=== PATIENT | male | born 1950 | race Caucasian/White ===

== ENCOUNTER 2018-10-02 12:13 | Inpatient (IN) | payer MEDICARE ==
[2018-10-02 13:03] LABS: ADD MAN DIFF? NO
[2018-10-02 13:10] LABS: BASOPHILS % 0.4 % (0.0-2.0); EOSINOPHILS # 0.2 10^3/ul (0.0-0.5); EOSINOPHILS % 2.3 % (0.0-7.0); HEMATOCRIT 39.8 % (42.0-52.0); HEMOGLOBIN 13.8 g/dl (14.0-18.0); LYMPHOCYTES # 1.9 10^3/ul (0.8-2.9); LYMPHOCYTES % 22.2 % (15.0-51.0); MEAN CORPUSCULAR HEMOGLOBIN 29.9 pg (29.0-33.0); MEAN CORPUSCULAR HGB CONC 34.7 g/dl (32.0-37.0); MEAN CORPUSCULAR VOLUME 86.1 fl (82.0-101.0); MEAN PLATELET VOLUME 10.7 fl (7.4-10.4); MONOCYTE # 0.6 10^3/ul (0.3-0.9); MONOCYTES % 7.1 % (0.0-11.0); NEUTROPHIL # 5.7 10^3/ul (1.6-7.5); NEUTROPHILS % 67.5 % (39.0-77.0); PLATELET COUNT 184 10^3/UL (140-415); RED BLOOD COUNT 4.62 10^6/ul (4.70-6.10); RED CELL DISTRIBUTION WIDTH 12.3 % (11.5-14.5)
[2018-10-02 13:10] LABS: WHITE BLOOD COUNT 8.4 10^3/ul (4.8-10.8)
[2018-10-02 13:28] LABS: ALANINE AMINOTRANSFERASE 30 IU/L (13-69); ALBUMIN 3.9 g/dl (3.3-4.9); ALBUMIN/GLOBULIN RATIO 1.21; ALKALINE PHOSPHATASE 99 IU/L (42-121); ANION GAP 12 (5-13); ASPARTATE AMINO TRANSFERASE 23 IU/L (15-46); BILIRUBIN,INDIRECT 0.5 mg/dl (0-1.1); BILIRUBIN,TOTAL 0.5 mg/dl (0.2-1.3); BLOOD UREA NITROGEN 17 mg/dl (7-20); CALCIUM 9.4 mg/dl (8.4-10.2); CARBON DIOXIDE 22 mmol/L (21-31); CHLORIDE 105 mmol/L (97-110); CREATININE 0.98 mg/dl (0.61-1.24); Estimated GFR > 60 mL/min (>60); GLUCOSE 278 mg/dl (70-220); LIPASE 158 U/L (23-300); POTASSIUM 4.6 mmol/L (3.5-5.1); SODIUM 139 mmol/L (135-144); TOTAL PROTEIN 7.1 g/dl (6.1-8.1)
[2018-10-02 13:40] LABS: B-TYPE NATRIURETIC PEPTIDE 386 PG/ML (0-125)
[2018-10-02 13:58] LABS: TROPONIN-I 0.126 ng/ml (0.000-0.120)
[2018-10-02] MEDS: ASPIRIN 81 MG TAB PO (14:10)
[2018-10-02] MEDS: NICARDipine HCL 30 MG CAPSULE PO (14:10)
[2018-10-02] MEDS: IOHEXOL 100 ML (15:22)
[2018-10-02] MEDS: SOD CHLORIDE 0.9% 100 ML (15:22)
[2018-10-02] MEDS ORDERED: NACL 0.9% 3 ML SYG IV (15:30)
[2018-10-02] MEDS ORDERED: HYDROCODONE/APAP (5/325) TAB PO (15:30)
[2018-10-02] MEDS ORDERED: ACETAMINOPHEN 325 MG TAB PO (15:30)
[2018-10-02] MEDS ORDERED: AMLODIPINE 5 MG TAB PO (15:30)
[2018-10-02] MEDS ORDERED: ONDANSETRON 4 MG INJ IV (15:30)
[2018-10-02 15:58] LABS: HEMOGLOBIN A1C 8.3 % (0-5.9)
[2018-10-02 16:10] LABS: FREE T4 (FREE THYROXINE) 1.12 ng/dl (0.78-2.44)
[2018-10-02] MEDS ORDERED: GLUCAGON 1 MG INJ IM (16:30)
[2018-10-02] MEDS ORDERED: DEXTROSE 50% 50 ML SYRINGE IV ×2 (16:30)
[2018-10-02] MEDS ORDERED: GLUCOSE GEL 15 GRAM TUBE PO ×2 (16:30)
[2018-10-02] MEDS ORDERED: GLUCOSE GEL 15 GRAM TUBE BUCCAL (16:30)
[2018-10-02] MEDS: INSULIN ASPART [NOVOLOG] 3 ML PEN SC ×3 (17:59→20:47)
[2018-10-02] MEDS: MIRTAZAPINE 15 MG TAB PO (20:35)
[2018-10-02] MEDS: LOSARTAN 50 MG TAB PO (20:36)
[2018-10-02 20:45] LABS: CREATINE KINASE 126 IU/L (23-200)
[2018-10-02] MEDS: INSULIN GLARGINE [LANTus] (100 UNITS/ML) SYG SC (20:47)
[2018-10-02 20:58] LABS: CK INDEX 1.7; CK-MB 2.09 ng/ml (0.0-2.4)
[2018-10-02] MEDS ORDERED: METOPROLOL 100 MG TAB PO (21:00)
[2018-10-02 21:02] LABS: TROPONIN-I 0.164 ng/ml (0.000-0.120)
[2018-10-02] MEDS: ZOLPIDEM 5 MG TAB PO (23:19)
[2018-10-03 05:26] LABS: ADD MAN DIFF? NO
[2018-10-03 05:31] LABS: BASOPHILS % 0.4 % (0.0-2.0); EOSINOPHILS # 0.2 10^3/ul (0.0-0.5); EOSINOPHILS % 2.6 % (0.0-7.0); HEMATOCRIT 38.9 % (42.0-52.0); HEMOGLOBIN 13.4 g/dl (14.0-18.0); LYMPHOCYTES # 2.7 10^3/ul (0.8-2.9); LYMPHOCYTES % 29.3 % (15.0-51.0); MEAN CORPUSCULAR HGB CONC 34.4 g/dl (32.0-37.0); MEAN CORPUSCULAR VOLUME 87.2 fl (82.0-101.0); MEAN PLATELET VOLUME 10.7 fl (7.4-10.4); MONOCYTE # 0.8 10^3/ul (0.3-0.9); MONOCYTES % 8.4 % (0.0-11.0); NEUTROPHIL # 5.5 10^3/ul (1.6-7.5); PLATELET COUNT 179 10^3/UL (140-415); RED BLOOD COUNT 4.46 10^6/ul (4.70-6.10); RED CELL DISTRIBUTION WIDTH 12.6 % (11.5-14.5)
[2018-10-03 05:31] LABS: WHITE BLOOD COUNT 9.3 10^3/ul (4.8-10.8)
[2018-10-03 06:00] LABS: ALANINE AMINOTRANSFERASE 26 IU/L (13-69); ALBUMIN 3.7 g/dl (3.3-4.9); ALBUMIN/GLOBULIN RATIO 1.68; ALKALINE PHOSPHATASE 77 IU/L (42-121); ANION GAP 12 (5-13); ASPARTATE AMINO TRANSFERASE 21 IU/L (15-46); BILIRUBIN,INDIRECT 0.6 mg/dl (0-1.1); BILIRUBIN,TOTAL 0.6 mg/dl (0.2-1.3); BLOOD UREA NITROGEN 19 mg/dl (7-20); CALCIUM 9.6 mg/dl (8.4-10.2); CARBON DIOXIDE 23 mmol/L (21-31); CHLORIDE 105 mmol/L (97-110); CREATININE 1.11 mg/dl (0.61-1.24); Estimated GFR > 60 mL/min (>60); GLUCOSE 210 mg/dl (70-220); POTASSIUM 4.4 mmol/L (3.5-5.1); SODIUM 140 mmol/L (135-144); TOTAL PROTEIN 5.9 g/dl (6.1-8.1)
[2018-10-03 06:13] LABS: PHOSPHORUS 3.7 mg/dl (2.5-4.9)
[2018-10-03 06:13] LABS: CHOL/HDL RATIO 8.3 RATIO; CHOLESTEROL 183 mg/dl (100-200); HDL CHOLESTEROL 22 mg/dl (31-75); LDL CHOLESTEROL,CALCULATED 120 mg/dl; MAGNESIUM 1.8 mg/dl (1.7-2.5); TRIGLYCERIDES 207 mg/dl (0-149)
[2018-10-03] MEDS: INSULIN ASPART [NOVOLOG] 3 ML PEN SC ×4 (08:05→12:09)
[2018-10-03] MEDS: LOSARTAN 50 MG TAB PO (08:23)
[2018-10-03] MEDS: ASPIRIN 81 MG TAB PO (08:23)
[2018-10-03] MEDS: ENOXAPARIN 40 MG/0.4 ML SYG SC (08:27)
[2018-10-03] MEDS ORDERED: LOSARTAN 50 MG TAB PO (09:00)
[2018-10-03] MEDS: REGADENOSON 0.4 MG/5 ML SYG (10:22)
[2018-10-03 11:59] LABS: CREATINE KINASE 120 IU/L (23-200)
[2018-10-03 12:13] LABS: CK INDEX 1.4; CK-MB 1.64 ng/ml (0.0-2.4)
[2018-10-03 12:54] LABS: TROPONIN-I 0.148 ng/ml (0.000-0.120)
[2018-10-03] MEDS: NA PHOSPHATE/BIPHOS 133 ML ENEMA PR (16:02)
[2018-10-03] MEDS ORDERED: ATORVASTATIN 20 MG TAB PO (21:00)
== END 2018-10-03 18:37 | disposition home or self-care (01) | DRG 281 ==
LOC: E/R 12:13 → 6WM 14:35
PROVIDERS: Internal Medicine
PROC: C22G1ZZ Tomographic (Tomo) Nuclear Medicine Imaging of Myocardium using Technetium 99m (Tc-99m) (ICD-10-PCS; principal; 2018-10-03)
DX: I21.A1 Myocardial infarction type 2 (principal); I16.1 Hypertensive emergency; I16.0 Hypertensive urgency; E11.9 Type 2 diabetes mellitus without complications; G47.00 Insomnia, unspecified; E66.9 Obesity, unspecified; Z68.38 Body mass index [BMI] 38.0-38.9, adult; I10 Essential (primary) hypertension; E78.5 Hyperlipidemia, unspecified; F99 Mental disorder, not otherwise specified
CPT/HCPCS: 36415; 71045; 71275; 78452; 80053; 80061; 82550; 82553; 82962; 83036; 83690; 83735; 83880; 84100; 84439; 84443; 84484; 85025; 93005; 93017; 93306; 99285-25

== ENCOUNTER 2018-11-21 12:57 | Inpatient (IN) | payer MEDICARE ==
[2018-11-21 13:27] LABS: ADD MAN DIFF? NO
[2018-11-21 13:29] LABS: BASOPHILS % 0.3 % (0.0-2.0); EOSINOPHILS # 0.2 10^3/ul (0.0-0.5); EOSINOPHILS % 2.2 % (0.0-7.0); HEMATOCRIT 45.8 % (42.0-52.0); HEMOGLOBIN 15.6 g/dl (14.0-18.0); LYMPHOCYTES # 2.2 10^3/ul (0.8-2.9); LYMPHOCYTES % 21.3 % (15.0-51.0); MEAN CORPUSCULAR HEMOGLOBIN 29.3 pg (29.0-33.0); MEAN CORPUSCULAR HGB CONC 34.1 g/dl (32.0-37.0); MEAN CORPUSCULAR VOLUME 85.9 fl (82.0-101.0); MEAN PLATELET VOLUME 11.1 fl (7.4-10.4); MONOCYTE # 0.8 10^3/ul (0.3-0.9); MONOCYTES % 7.7 % (0.0-11.0); NEUTROPHIL # 6.9 10^3/ul (1.6-7.5); NEUTROPHILS % 67.9 % (39.0-77.0); PLATELET COUNT 286 10^3/UL (140-415); RED BLOOD COUNT 5.33 10^6/ul (4.70-6.10); RED CELL DISTRIBUTION WIDTH 12.7 % (11.5-14.5)
[2018-11-21 13:29] LABS: WHITE BLOOD COUNT 10.1 10^3/ul (4.8-10.8)
[2018-11-21] MEDS: LORAZEPAM 2 MG INJ IV (13:44)
[2018-11-21] MEDS: SOD CHLORIDE 0.9% 1,000 ML IV ×3 (13:45→17:39)
[2018-11-21 13:47] LABS: ALANINE AMINOTRANSFERASE 29 IU/L (13-69); ALBUMIN 4.5 g/dl (3.3-4.9); ALBUMIN/GLOBULIN RATIO 1.32; ALKALINE PHOSPHATASE 119 IU/L (42-121); ANION GAP 18 (5-13); ASPARTATE AMINO TRANSFERASE 25 IU/L (15-46); BILIRUBIN,INDIRECT 0.6 mg/dl (0-1.1); BILIRUBIN,TOTAL 0.6 mg/dl (0.2-1.3); BLOOD UREA NITROGEN 29 mg/dl (7-20); CALCIUM 9.7 mg/dl (8.4-10.2); CARBON DIOXIDE 19 mmol/L (21-31); CHLORIDE 102 mmol/L (97-110); CREATININE 2.09 mg/dl (0.61-1.24); Estimated GFR 32 mL/min (>60); GLUCOSE 348 mg/dl (70-220); POTASSIUM 4.6 mmol/L (3.5-5.1); SODIUM 139 mmol/L (135-144); TOTAL PROTEIN 7.9 g/dl (6.1-8.1)
[2018-11-21 13:57] LABS: ACETAMINOPHEN < 10.0 ug/ml (10.0-30.0); ETHANOL < 10.0 mg/dl (0-0); SALICYLATE < 1.0 mg/dl (5.0-30.0)
[2018-11-21] MEDS ORDERED: ONDANSETRON 4 MG INJ IV ×2 (14:30→15:30)
[2018-11-21] MEDS ORDERED: ACETAMINOPHEN 325 MG TAB PO (14:30)
[2018-11-21] MEDS: INSULIN LISPRO 100 UNIT/ML VIAL SC (14:49)
[2018-11-21] MEDS ORDERED: POTASSIUM CHLORIDE 40 MEQ in SOD CHLORIDE 0.9% 1,000 ML IV (15:14)
[2018-11-21] MEDS ORDERED: hydrALAzine 20 MG INJ IV (15:30)
[2018-11-21] MEDS ORDERED: morphine SULFATE/PF (2 MG/2 ML) SYG IV (15:30)
[2018-11-21] MEDS ORDERED: DOCUSATE SODIUM 100 MG CAP PO (15:30)
[2018-11-21] MEDS ORDERED: MAGNESIUM HYDROXIDE 30ML CUP PO (15:30)
[2018-11-21] MEDS ORDERED: NITROGLYCERIN (SL) 0.4 MG TAB SL (15:30)
[2018-11-21] MEDS ORDERED: HYDROCODONE/APAP (5/325) TAB PO (15:30)
[2018-11-21] MEDS ORDERED: ALBUTEROL/IPRATROPIUM (NEB) 3 ML AMP HHN (15:30)
[2018-11-21] MEDS ORDERED: NACL 0.9% 3 ML SYG IV (15:30)
[2018-11-21] MEDS: ACCU-CHEK XX ×8 (16:00→23:07)
[2018-11-21 16:22] LABS: FREE T4 (FREE THYROXINE) 1.53 ng/dl (0.78-2.44)
[2018-11-21 16:28] LABS: INR 1.04; PARTIAL THROMBOPLASTIN TIME 28.8 Sec (23.0-35.0); PROTIME 13.7 Sec (11.9-14.9); PT RATIO 1.1
[2018-11-21] MEDS ORDERED: SOD CHLORIDE 0.9% 1,000 ML IV (16:30)
[2018-11-21 16:57] LABS: HEMOGLOBIN A1C 8.5 % (0-5.9)
[2018-11-21 17:25] LABS: MAGNESIUM 1.4 mg/dl (1.7-2.5)
[2018-11-21] MEDS ORDERED: SODIUM CHLORIDE 23.4% 77 MEQ, POTASSIUM CHLORIDE 40 MEQ in DEXTROSE 10% 1,000 ML IV (17:30)
[2018-11-21 17:46] LABS: CREATINE KINASE 116 IU/L (23-200)
[2018-11-21 17:59] LABS: CK-MB 2.34 ng/ml (0.0-2.4); TROPONIN-I 0.079 ng/ml (0.000-0.120)
[2018-11-21] MEDS: POTASSIUM CHLORIDE 30 MEQ in SOD CHLORIDE 0.9% 1,000 ML IV (18:29)
[2018-11-21] MEDS: SODIUM CHLORIDE 23.4% 77 MEQ, POTASSIUM CHLORIDE 30 MEQ in DEXTROSE 10% 1,000 ML IV (18:29)
[2018-11-21] MEDS: INSULIN REGULAR, HUMAN 100 UNIT in SOD CHLORIDE 0.9% 99 ML IV (18:32)
[2018-11-21] MEDS: LACTATED RINGER'S 1,000 ML IV (18:33)
[2018-11-21] MEDS: ASPIRIN 81 MG TAB PO (19:05)
[2018-11-21] MEDS: PANTOPRAZOLE 40 MG INJ IV (19:05)
[2018-11-21] MEDS: HEPARIN 5,000 UNIT/1 ML VIAL SC (19:08)
[2018-11-21 19:53] LABS: MODE ROOM AIR; MetHgb Venous 1.5 %; Sample Type Blood venous; Site VENOUS LINE; Venous COHb 0.3 %; Venous Fraction OxyHgb 27.5 %
[2018-11-21 20:10] LABS: ANION GAP 12 (5-13); BLOOD UREA NITROGEN 24 mg/dl (7-20); CALCIUM 7.9 mg/dl (8.4-10.2); CARBON DIOXIDE 22 mmol/L (21-31); CHLORIDE 108 mmol/L (97-110); CREATININE 1.41 mg/dl (0.61-1.24); Estimated GFR 50 mL/min (>60); GLUCOSE 180 mg/dl (70-220); MAGNESIUM 1.3 mg/dl (1.7-2.5); PHOSPHORUS 2.3 mg/dl (2.5-4.9); POTASSIUM 3.7 mmol/L (3.5-5.1); SODIUM 142 mmol/L (135-144)
[2018-11-21] MEDS: MIRTAZAPINE 15 MG TAB PO (20:59)
[2018-11-21] MEDS: ATORVASTATIN 20 MG TAB PO (20:59)
[2018-11-21] MEDS ORDERED: METOPROLOL 100 MG TAB PO (21:00)
[2018-11-21 21:25] LABS: ADD UMIC YES; UR ASCORBIC ACID NEGATIVE (NEGATIVE); UR BACTERIA FEW /HPF (NONE SEEN); UR BILIRUBIN (Dip) NEGATIVE (NEGATIVE); UR BLOOD (Dip) 3+ mg/dL (NEGATIVE); UR CLARITY SLIGHTLY CLOUDY (CLEAR); UR COLOR YELLOW (YELLOW); UR GLUCOSE (Dip) 2+ mg/dL (NEGATIVE); UR KETONES (Dip) TRACE mg/dL (NEGATIVE); UR LEUKOCYTE ESTERASE (Dip) NEGATIVE Leu/ul (NEGATIVE); UR MUCUS FEW /HPF (NONE SEEN); UR NITRITE (Dip) NEGATIVE (NEGATIVE); UR RBC 142 /HPF (0-5); UR SPECIFIC GRAVITY (Dip) 1.017 (1.003-1.030); UR SQUAMOUS EPITHELIAL CELL FEW /HPF (FEW); UR TOTAL PROTEIN (Dip) 1+ mg/dl (NEGATIVE); UR UROBILINOGEN (Dip) NEGATIVE (NEGATIVE); UR WBC 4 /HPF (0-5)
[2018-11-21 21:36] LABS: AMPHETAMINE/METHAMPHETAMINE Negative (NEGATIVE); BARBITURATES Negative (NEGATIVE); BENZODIAZEPINES Negative (NEGATIVE); CANNABINOIDS Negative (NEGATIVE); COCAINE Negative (NEGATIVE); OPIATES Negative (NEGATIVE)
[2018-11-21 21:58] LABS: SODIUM,URINE RANDOM 120 mmol/L (30-90)
[2018-11-21 21:58] LABS: CREATININE,URINE RANDOM 199.33 mg/dl (20-370)
[2018-11-21 22:13] LABS: MODE ROOM AIR; MetHgb Venous 0.5 %; Sample Type Blood venous; Site VENOUS LINE; Venous COHb 0.5 %; Venous Fraction OxyHgb 39.2 %; Venous Oxygen Sat 39.6 mmHG (55.0-75.0)
[2018-11-21 22:31] LABS: CREATINE KINASE 91 IU/L (23-200)
[2018-11-21 22:33] LABS: ANION GAP 13 (5-13); BLOOD UREA NITROGEN 24 mg/dl (7-20); CALCIUM 8.8 mg/dl (8.4-10.2); CARBON DIOXIDE 24 mmol/L (21-31); CHLORIDE 106 mmol/L (97-110); CREATININE 1.59 mg/dl (0.61-1.24); Estimated GFR 43 mL/min (>60); GLUCOSE 95 mg/dl (70-220); MAGNESIUM 1.4 mg/dl (1.7-2.5); PHOSPHORUS 2.4 mg/dl (2.5-4.9); POTASSIUM 3.8 mmol/L (3.5-5.1); SODIUM 143 mmol/L (135-144)
[2018-11-21] MEDS: MAGNESIUM SULFATE 3 GM in DEXTROSE 5% 100 ML IVPB (22:36)
[2018-11-21] MEDS: INSULIN GLARGINE [LANTus] (100 UNITS/ML) SYG SC (22:39)
[2018-11-21 22:45] LABS: CK INDEX 2.1; CK-MB 1.92 ng/ml (0.0-2.4); TROPONIN-I 0.095 ng/ml (0.000-0.120)
[2018-11-21] MEDS: SODIUM CHLORIDE 23.4% 77 MEQ in DEXTROSE 10% 1,000 ML IV (23:24)
[2018-11-21] MEDS: ZOLPIDEM 5 MG TAB PO (23:29)
[2018-11-22] MEDS: ACCU-CHEK XX ×14 (01:05→12:28)
[2018-11-22] MEDS: HEPARIN 5,000 UNIT/1 ML VIAL SC ×3 (01:14→20:38)
[2018-11-22 02:24] LABS: ANION GAP 12 (5-13); BLOOD UREA NITROGEN 21 mg/dl (7-20); CALCIUM 8.8 mg/dl (8.4-10.2); CARBON DIOXIDE 22 mmol/L (21-31); CHLORIDE 108 mmol/L (97-110); CREATININE 1.31 mg/dl (0.61-1.24); Estimated GFR 54 mL/min (>60); GLUCOSE 100 mg/dl (70-220); MAGNESIUM 1.9 mg/dl (1.7-2.5); POTASSIUM 3.9 mmol/L (3.5-5.1); SODIUM 142 mmol/L (135-144)
[2018-11-22] MEDS: SOD CHLORIDE 0.9% 1,000 ML IV ×3 (02:30→18:57)
[2018-11-22 02:43] LABS: MODE ROOM AIR; MetHgb Venous 0.2 %; Sample Type Blood venous; Site VENOUS LINE; Venous COHb 0.7 %; Venous Oxygen Sat 71.6 mmHG (55.0-75.0); Venous Total Hemglobin 14.7 g/dl
[2018-11-22] MEDS: SODIUM CHLORIDE 23.4% 77 MEQ, POTASSIUM CHLORIDE 30 MEQ in DEXTROSE 10% 1,000 ML IV ×2 (03:35→09:33)
[2018-11-22] MEDS: PANTOPRAZOLE 40 MG INJ IV (05:57)
[2018-11-22 06:43] LABS: MODE ROOM AIR; MetHgb Venous 0.3 %; Sample Type Blood venous; Site VENOUS LINE; Venous COHb 0.7 %; Venous Fraction OxyHgb 53.5 %; Venous Total Hemglobin 14.3 g/dl
[2018-11-22 07:00] LABS: ADD MAN DIFF? NO
[2018-11-22 07:17] LABS: WHITE BLOOD COUNT 8.4 10^3/ul (4.8-10.8)
[2018-11-22 07:17] LABS: BASOPHILS % 0.4 % (0.0-2.0); EOSINOPHILS # 0.4 10^3/ul (0.0-0.5); EOSINOPHILS % 4.5 % (0.0-7.0); HEMATOCRIT 39.5 % (42.0-52.0); HEMOGLOBIN 13.1 g/dl (14.0-18.0); LYMPHOCYTES # 2.8 10^3/ul (0.8-2.9); LYMPHOCYTES % 32.9 % (15.0-51.0); MEAN CORPUSCULAR HEMOGLOBIN 29.5 pg (29.0-33.0); MEAN CORPUSCULAR HGB CONC 33.2 g/dl (32.0-37.0); MEAN PLATELET VOLUME 11.2 fl (7.4-10.4); MONOCYTE # 0.8 10^3/ul (0.3-0.9); MONOCYTES % 8.9 % (0.0-11.0); NEUTROPHIL # 4.4 10^3/ul (1.6-7.5); NEUTROPHILS % 52.7 % (39.0-77.0); PLATELET COUNT 167 10^3/UL (140-415); RED BLOOD COUNT 4.44 10^6/ul (4.70-6.10); RED CELL DISTRIBUTION WIDTH 12.7 % (11.5-14.5)
[2018-11-22 07:29] LABS: HEMOGLOBIN A1C 8.7 % (0-5.9)
[2018-11-22 07:44] LABS: ANION GAP 10 (5-13); BLOOD UREA NITROGEN 20 mg/dl (7-20); CALCIUM 8.6 mg/dl (8.4-10.2); CARBON DIOXIDE 23 mmol/L (21-31); CHLORIDE 105 mmol/L (97-110); CHOL/HDL RATIO 4.8 RATIO; CHOLESTEROL 131 mg/dl (100-200); CREATININE 1.26 mg/dl (0.61-1.24); Estimated GFR 57 mL/min (>60); GLUCOSE 239 mg/dl (70-220); HDL CHOLESTEROL 27 mg/dl (31-75); LDL CHOLESTEROL,CALCULATED 79 mg/dl; MAGNESIUM 1.7 mg/dl (1.7-2.5); PHOSPHORUS 2.7 mg/dl (2.5-4.9); POTASSIUM 4.5 mmol/L (3.5-5.1); SODIUM 138 mmol/L (135-144); TRIGLYCERIDES 127 mg/dl (0-149)
[2018-11-22] MEDS ORDERED: GLUCAGON 1 MG INJ IM (09:00)
[2018-11-22] MEDS ORDERED: GLUCOSE GEL 15 GRAM TUBE BUCCAL (09:00)
[2018-11-22] MEDS ORDERED: GLUCOSE GEL 15 GRAM TUBE PO ×2 (09:00)
[2018-11-22] MEDS ORDERED: DEXTROSE 50% 50 ML SYRINGE IV ×2 (09:00)
[2018-11-22] MEDS: ASPIRIN 81 MG TAB PO (09:04)
[2018-11-22] MEDS: INSULIN GLARGINE [LANTus] (100 UNITS/ML) SYG SC (11:17)
[2018-11-22] MEDS: ARIPIPRAZOLE 2 MG TAB PO (12:20)
[2018-11-22] MEDS: INSULIN ASPART [NOVOLOG] 3 ML PEN SC ×5 (12:23→20:48)
[2018-11-22 20:16] LABS: PHOSPHORUS 2.3 mg/dl (2.5-4.9)
[2018-11-22] MEDS: ACETAMINOPHEN 325 MG TAB PO (20:35)
[2018-11-22] MEDS: ATORVASTATIN 20 MG TAB PO (20:35)
[2018-11-22] MEDS: LAMOTRIGINE 25 MG TAB PO (22:05)
[2018-11-23] MEDS: MIRTAZAPINE 15 MG TAB PO ×2 (00:03→22:14)
[2018-11-23] MEDS: ACCU-CHEK XX (02:00)
[2018-11-23] MEDS: LORAZEPAM 4 MG/ML VIAL IV (02:08)
[2018-11-23] MEDS: PANTOPRAZOLE 40 MG INJ IV (05:59)
[2018-11-23 08:49] LABS: ADD MAN DIFF? NO
[2018-11-23 08:53] LABS: WHITE BLOOD COUNT 6.8 10^3/ul (4.8-10.8)
[2018-11-23 08:53] LABS: BASOPHILS % 0.3 % (0.0-2.0); EOSINOPHILS # 0.3 10^3/ul (0.0-0.5); EOSINOPHILS % 4.3 % (0.0-7.0); HEMATOCRIT 39.1 % (42.0-52.0); HEMOGLOBIN 13.4 g/dl (14.0-18.0); LYMPHOCYTES # 2.6 10^3/ul (0.8-2.9); LYMPHOCYTES % 38.2 % (15.0-51.0); MEAN CORPUSCULAR HGB CONC 34.3 g/dl (32.0-37.0); MEAN CORPUSCULAR VOLUME 87.7 fl (82.0-101.0); MEAN PLATELET VOLUME 12.1 fl (7.4-10.4); MONOCYTE # 0.5 10^3/ul (0.3-0.9); MONOCYTES % 7.5 % (0.0-11.0); NEUTROPHIL # 3.4 10^3/ul (1.6-7.5); NEUTROPHILS % 49.1 % (39.0-77.0); PLATELET COUNT 174 10^3/UL (140-415); RED BLOOD COUNT 4.46 10^6/ul (4.70-6.10); RED CELL DISTRIBUTION WIDTH 12.6 % (11.5-14.5)
[2018-11-23] MEDS: INSULIN ASPART [NOVOLOG] 3 ML PEN SC ×7 (09:01→20:44)
[2018-11-23] MEDS: INSULIN GLARGINE [LANTus] (100 UNITS/ML) SYG SC (09:03)
[2018-11-23] MEDS: LAMOTRIGINE 25 MG TAB PO ×2 (09:05→22:13)
[2018-11-23] MEDS: ASPIRIN 81 MG TAB PO (09:05)
[2018-11-23] MEDS: HEPARIN 5,000 UNIT/1 ML VIAL SC ×2 (09:10→22:17)
[2018-11-23 09:14] LABS: ANION GAP 11 (5-13); BLOOD UREA NITROGEN 13 mg/dl (7-20); CARBON DIOXIDE 22 mmol/L (21-31); CHLORIDE 107 mmol/L (97-110); CREATININE 1.08 mg/dl (0.61-1.24); Estimated GFR > 60 mL/min (>60); GLUCOSE 181 mg/dl (70-220); POTASSIUM 4.3 mmol/L (3.5-5.1); SODIUM 140 mmol/L (135-144)
[2018-11-23 09:15] LABS: PHOSPHORUS 2.8 mg/dl (2.5-4.9)
[2018-11-23] MEDS: ARIPIPRAZOLE 2 MG TAB PO (10:11)
[2018-11-23] MEDS: ATORVASTATIN 20 MG TAB PO (22:20)
[2018-11-24] MEDS: ACCU-CHEK XX (01:25)
[2018-11-24] MEDS: PANTOPRAZOLE 40 MG INJ IV (05:21)
[2018-11-24 06:31] LABS: ADD MAN DIFF? NO
[2018-11-24 06:43] LABS: WHITE BLOOD COUNT 7.8 10^3/ul (4.8-10.8)
[2018-11-24 06:43] LABS: BASOPHILS % 0.3 % (0.0-2.0); EOSINOPHILS # 0.4 10^3/ul (0.0-0.5); EOSINOPHILS % 5.3 % (0.0-7.0); HEMATOCRIT 39.6 % (42.0-52.0); HEMOGLOBIN 13.4 g/dl (14.0-18.0); LYMPHOCYTES # 2.7 10^3/ul (0.8-2.9); LYMPHOCYTES % 35.1 % (15.0-51.0); MEAN CORPUSCULAR HEMOGLOBIN 29.5 pg (29.0-33.0); MEAN CORPUSCULAR HGB CONC 33.8 g/dl (32.0-37.0); MEAN CORPUSCULAR VOLUME 87.2 fl (82.0-101.0); MEAN PLATELET VOLUME 11.4 fl (7.4-10.4); MONOCYTE # 0.6 10^3/ul (0.3-0.9); MONOCYTES % 7.9 % (0.0-11.0); NEUTROPHILS % 50.9 % (39.0-77.0); PLATELET COUNT 159 10^3/UL (140-415); RED BLOOD COUNT 4.54 10^6/ul (4.70-6.10); RED CELL DISTRIBUTION WIDTH 12.3 % (11.5-14.5)
[2018-11-24 07:18] LABS: ANION GAP 8 (5-13); BLOOD UREA NITROGEN 14 mg/dl (7-20); CARBON DIOXIDE 25 mmol/L (21-31); CHLORIDE 108 mmol/L (97-110); CREATININE 1.12 mg/dl (0.61-1.24); Estimated GFR > 60 mL/min (>60); GLUCOSE 161 mg/dl (70-220); POTASSIUM 4.2 mmol/L (3.5-5.1); SODIUM 141 mmol/L (135-144)
[2018-11-24] MEDS: LAMOTRIGINE 25 MG TAB PO ×2 (09:00→21:13)
[2018-11-24] MEDS: ASPIRIN 81 MG TAB PO (09:00)
[2018-11-24] MEDS: ARIPIPRAZOLE 2 MG TAB PO (09:00)
[2018-11-24] MEDS: HEPARIN 5,000 UNIT/1 ML VIAL SC ×2 (09:01→21:20)
[2018-11-24] MEDS: INSULIN ASPART [NOVOLOG] 3 ML PEN SC ×7 (09:02→21:00)
[2018-11-24] MEDS: INSULIN GLARGINE [LANTus] (100 UNITS/ML) SYG SC (09:04)
[2018-11-24] MEDS: LORAZEPAM 4 MG/ML VIAL IV (13:13)
[2018-11-24 14:26] LABS: CREATININE, RANDOM URINE 194 mg/dL (20-320); MICROALBUMIN 9.6 mg/dL; MICROALBUMIN/CREATININE RATIO 49 (<30)
[2018-11-24 17:06] LABS: ACETONE NEGATIVE (NEGATIVE)
[2018-11-24] MEDS: ATORVASTATIN 20 MG TAB PO (21:12)
[2018-11-24] MEDS: ZOLPIDEM 5 MG TAB PO (21:12)
[2018-11-24] MEDS: MIRTAZAPINE 15 MG TAB PO (21:13)
[2018-11-25] MEDS: ACCU-CHEK XX (02:00)
[2018-11-25] MEDS: PANTOPRAZOLE (EC) 40 MG TAB PO (05:28)
[2018-11-25 06:58] LABS: ADD MAN DIFF? NO
[2018-11-25 07:00] LABS: BASOPHILS % 0.4 % (0.0-2.0); EOSINOPHILS # 0.4 10^3/ul (0.0-0.5); EOSINOPHILS % 5.4 % (0.0-7.0); HEMATOCRIT 39.1 % (42.0-52.0); HEMOGLOBIN 13.3 g/dl (14.0-18.0); LYMPHOCYTES # 2.6 10^3/ul (0.8-2.9); LYMPHOCYTES % 33.5 % (15.0-51.0); MEAN CORPUSCULAR HEMOGLOBIN 29.8 pg (29.0-33.0); MEAN CORPUSCULAR VOLUME 87.7 fl (82.0-101.0); MEAN PLATELET VOLUME 11.2 fl (7.4-10.4); MONOCYTE # 0.6 10^3/ul (0.3-0.9); MONOCYTES % 7.9 % (0.0-11.0); NEUTROPHIL # 4.1 10^3/ul (1.6-7.5); NEUTROPHILS % 52.2 % (39.0-77.0); PLATELET COUNT 171 10^3/UL (140-415); RED BLOOD COUNT 4.46 10^6/ul (4.70-6.10); RED CELL DISTRIBUTION WIDTH 12.5 % (11.5-14.5)
[2018-11-25 07:00] LABS: WHITE BLOOD COUNT 7.9 10^3/ul (4.8-10.8)
[2018-11-25 07:50] LABS: ANION GAP 12 (5-13); BLOOD UREA NITROGEN 15 mg/dl (7-20); CALCIUM 9.2 mg/dl (8.4-10.2); CARBON DIOXIDE 22 mmol/L (21-31); CHLORIDE 107 mmol/L (97-110); CREATININE 1.15 mg/dl (0.61-1.24); Estimated GFR > 60 mL/min (>60); GLUCOSE 169 mg/dl (70-220); POTASSIUM 4.1 mmol/L (3.5-5.1); SODIUM 141 mmol/L (135-144)
[2018-11-25] MEDS: INSULIN GLARGINE [LANTus] (100 UNITS/ML) SYG SC (09:03)
[2018-11-25] MEDS: INSULIN ASPART [NOVOLOG] 3 ML PEN SC ×7 (09:04→20:17)
[2018-11-25] MEDS: HEPARIN 5,000 UNIT/1 ML VIAL SC ×2 (09:05→20:21)
[2018-11-25] MEDS: ASPIRIN 81 MG TAB PO (09:14)
[2018-11-25] MEDS: LAMOTRIGINE 25 MG TAB PO ×2 (09:17→20:17)
[2018-11-25] MEDS: ARIPIPRAZOLE 2 MG TAB PO (09:19)
[2018-11-25] MEDS: ATORVASTATIN 20 MG TAB PO (20:17)
[2018-11-25] MEDS: MIRTAZAPINE 15 MG TAB PO (20:17)
[2018-11-25] MEDS: ACETAMINOPHEN 325 MG TAB PO (20:18)
[2018-11-26] MEDS: ACCU-CHEK XX (01:30)
[2018-11-26] MEDS: PANTOPRAZOLE (EC) 40 MG TAB PO (05:29)
[2018-11-26 06:54] LABS: ADD MAN DIFF? NO
[2018-11-26 06:56] LABS: BASOPHILS % 0.4 % (0.0-2.0); EOSINOPHILS # 0.3 10^3/ul (0.0-0.5); EOSINOPHILS % 3.8 % (0.0-7.0); HEMATOCRIT 37.6 % (42.0-52.0); HEMOGLOBIN 12.9 g/dl (14.0-18.0); LYMPHOCYTES # 2.7 10^3/ul (0.8-2.9); LYMPHOCYTES % 35.4 % (15.0-51.0); MEAN CORPUSCULAR HEMOGLOBIN 29.7 pg (29.0-33.0); MEAN CORPUSCULAR HGB CONC 34.3 g/dl (32.0-37.0); MEAN CORPUSCULAR VOLUME 86.4 fl (82.0-101.0); MEAN PLATELET VOLUME 11.8 fl (7.4-10.4); MONOCYTE # 0.7 10^3/ul (0.3-0.9); NEUTROPHIL # 3.9 10^3/ul (1.6-7.5); NEUTROPHILS % 50.7 % (39.0-77.0); PLATELET COUNT 171 10^3/UL (140-415); RED BLOOD COUNT 4.35 10^6/ul (4.70-6.10); RED CELL DISTRIBUTION WIDTH 12.8 % (11.5-14.5)
[2018-11-26 06:56] LABS: WHITE BLOOD COUNT 7.6 10^3/ul (4.8-10.8)
[2018-11-26 07:31] LABS: ANION GAP 12 (5-13); BLOOD UREA NITROGEN 18 mg/dl (7-20); CARBON DIOXIDE 23 mmol/L (21-31); CHLORIDE 105 mmol/L (97-110); CREATININE 1.27 mg/dl (0.61-1.24); Estimated GFR 56 mL/min (>60); GLUCOSE 172 mg/dl (70-220); SODIUM 140 mmol/L (135-144)
[2018-11-26] MEDS: LAMOTRIGINE 25 MG TAB PO ×2 (08:14→21:19)
[2018-11-26] MEDS: ASPIRIN 81 MG TAB PO (08:15)
[2018-11-26] MEDS: ARIPIPRAZOLE 2 MG TAB PO (08:15)
[2018-11-26] MEDS: HEPARIN 5,000 UNIT/1 ML VIAL SC ×2 (08:17→21:23)
[2018-11-26] MEDS: INSULIN ASPART [NOVOLOG] 3 ML PEN SC ×7 (08:28→21:23)
[2018-11-26] MEDS: INSULIN GLARGINE [LANTus] (100 UNITS/ML) SYG SC (08:29)
[2018-11-26] MEDS: LORAZEPAM 4 MG/ML VIAL IV (12:13)
[2018-11-26] MEDS ORDERED: DIPHENHYDRAMINE 50 MG CAP PO (17:30)
[2018-11-26] MEDS: ATORVASTATIN 20 MG TAB PO (21:20)
[2018-11-26] MEDS: MIRTAZAPINE 15 MG TAB PO (21:20)
[2018-11-27] MEDS: ACCU-CHEK XX (02:00)
[2018-11-27] MEDS: PANTOPRAZOLE (EC) 40 MG TAB PO (05:46)
[2018-11-27 06:42] LABS: ADD MAN DIFF? NO
[2018-11-27 07:01] LABS: WHITE BLOOD COUNT 7.4 10^3/ul (4.8-10.8)
[2018-11-27 07:01] LABS: BASOPHILS % 0.4 % (0.0-2.0); EOSINOPHILS # 0.4 10^3/ul (0.0-0.5); EOSINOPHILS % 4.9 % (0.0-7.0); HEMATOCRIT 38.1 % (42.0-52.0); HEMOGLOBIN 12.8 g/dl (14.0-18.0); LYMPHOCYTES # 2.6 10^3/ul (0.8-2.9); LYMPHOCYTES % 34.5 % (15.0-51.0); MEAN CORPUSCULAR HEMOGLOBIN 29.6 pg (29.0-33.0); MEAN CORPUSCULAR HGB CONC 33.6 g/dl (32.0-37.0); MEAN PLATELET VOLUME 11.5 fl (7.4-10.4); MONOCYTE # 0.7 10^3/ul (0.3-0.9); MONOCYTES % 8.8 % (0.0-11.0); NEUTROPHIL # 3.7 10^3/ul (1.6-7.5); NEUTROPHILS % 50.6 % (39.0-77.0); PLATELET COUNT 177 10^3/UL (140-415); RED BLOOD COUNT 4.33 10^6/ul (4.70-6.10); RED CELL DISTRIBUTION WIDTH 12.6 % (11.5-14.5)
[2018-11-27 07:26] LABS: ANION GAP 13 (5-13); BLOOD UREA NITROGEN 19 mg/dl (7-20); CALCIUM 9.2 mg/dl (8.4-10.2); CARBON DIOXIDE 25 mmol/L (21-31); CHLORIDE 105 mmol/L (97-110); CREATININE 1.29 mg/dl (0.61-1.24); Estimated GFR 55 mL/min (>60); GLUCOSE 193 mg/dl (70-220); POTASSIUM 4.2 mmol/L (3.5-5.1); SODIUM 143 mmol/L (135-144)
[2018-11-27] MEDS: ARIPIPRAZOLE 2 MG TAB PO (08:26)
[2018-11-27] MEDS: ASPIRIN 81 MG TAB PO (08:26)
[2018-11-27] MEDS: LAMOTRIGINE 25 MG TAB PO (08:27)
[2018-11-27] MEDS: INSULIN ASPART [NOVOLOG] 3 ML PEN SC ×4 (08:33→11:54)
[2018-11-27] MEDS: INSULIN GLARGINE [LANTus] (100 UNITS/ML) SYG SC (08:34)
[2018-11-27] MEDS: HEPARIN 5,000 UNIT/1 ML VIAL SC (08:35)
== END 2018-11-27 15:26 | DRG 638 ==
LOC: 5EC 11-22 18:19 → E/R 12:57 → 5EC 14:17 → ICU 17:22
PROVIDERS: Hospitalist
DX: E11.10 Type 2 diabetes mellitus with ketoacidosis without coma (principal); R45.851 Suicidal ideations; N17.9 Acute kidney failure, unspecified; E87.2 Acidosis; I25.2 Old myocardial infarction; F32.9 Major depressive disorder, single episode, unspecified
CPT/HCPCS: 36415; 76775; 80048; 80053; 80061; 80307; 81001; 81003; 82010; 82043; 82550; 82553; 82803; 82962; 83036; 83735; 84100; 84155; 84300; 84439; 84443; 84484; 85025; 85610; 85730; 86850; 86900; 86901; 87081; 87086; 93005; 96374; 97110; 97116; 97161; 97530; 99291-25

== ENCOUNTER 2019-02-23 11:00 | Inpatient (IN) | payer MEDICARE, BC ==
[2019-02-23 11:51] LABS: ADD MAN DIFF? NO
[2019-02-23] MEDS: MECLIZINE 12.5 MG TAB PO (11:51)
[2019-02-23 11:54] LABS: WHITE BLOOD COUNT 8.2 10^3/ul (4.8-10.8)
[2019-02-23 11:55] LABS: BASOPHILS % 0.4 % (0.0-2.0); EOSINOPHILS # 0.2 10^3/ul (0.0-0.5); EOSINOPHILS % 2.7 % (0.0-7.0); HEMATOCRIT 39.9 % (42.0-52.0); LYMPHOCYTES # 1.6 10^3/ul (0.8-2.9); LYMPHOCYTES % 19.3 % (15.0-51.0); MEAN CORPUSCULAR HEMOGLOBIN 29.1 pg (29.0-33.0); MEAN CORPUSCULAR HGB CONC 32.6 g/dl (32.0-37.0); MEAN CORPUSCULAR VOLUME 89.3 fl (82.0-101.0); MONOCYTE # 0.5 10^3/ul (0.3-0.9); MONOCYTES % 5.6 % (0.0-11.0); NEUTROPHIL # 5.9 10^3/ul (1.6-7.5); NEUTROPHILS % 71.5 % (39.0-77.0); PLATELET COUNT 197 10^3/UL (140-415); RED BLOOD COUNT 4.47 10^6/ul (4.70-6.10); RED CELL DISTRIBUTION WIDTH 12.8 % (11.5-14.5)
[2019-02-23 12:17] LABS: INR 1.06; PROTIME 13.9 Sec (11.9-14.9); PT RATIO 1.1
[2019-02-23 12:18] LABS: PARTIAL THROMBOPLASTIN TIME 31.5 Sec (23.0-35.0)
[2019-02-23 12:22] LABS: ANION GAP 10 (5-13); BLOOD UREA NITROGEN 26 mg/dl (7-20); CALCIUM 9.9 mg/dl (8.4-10.2); CARBON DIOXIDE 25 mmol/L (21-31); CHLORIDE 108 mmol/L (97-110); CREATININE 1.38 mg/dl (0.61-1.24); Estimated GFR 51 mL/min (>60); GLUCOSE 250 mg/dl (70-220); POTASSIUM 5.1 mmol/L (3.5-5.1); SODIUM 143 mmol/L (135-144)
[2019-02-23 12:33] LABS: TROPONIN-I < 0.012 ng/ml (0.000-0.120)
[2019-02-23] MEDS ORDERED: ZOLPIDEM 5 MG TAB PO (16:30)
[2019-02-23] MEDS ORDERED: ACETAMINOPHEN 325 MG TAB PO (16:30)
[2019-02-23] MEDS ORDERED: NACL 0.9% 3 ML SYG IV (16:30)
[2019-02-23] MEDS ORDERED: morphine 2 MG INJ IV (16:30)
[2019-02-23] MEDS ORDERED: GLUCOSE GEL 15 GRAM TUBE BUCCAL (18:00)
[2019-02-23] MEDS ORDERED: DEXTROSE 50% 50 ML SYRINGE IV ×2 (18:00)
[2019-02-23] MEDS ORDERED: GLUCOSE GEL 15 GRAM TUBE PO ×2 (18:00)
[2019-02-23] MEDS ORDERED: GLUCAGON 1 MG INJ IM (18:00)
[2019-02-23] MEDS: INSULIN ASPART [NOVOLOG] 3 ML PEN SC ×3 (20:00→21:00)
[2019-02-23] MEDS: TAMSULOSIN (SR) 0.4 MG CAP PO (20:56)
[2019-02-23] MEDS: MIRTAZAPINE 15 MG TAB PO (20:57)
[2019-02-23] MEDS: ATORVASTATIN 20 MG TAB PO (20:57)
[2019-02-23] MEDS ORDERED: glipiZIDE 10 MG TAB PO (21:00)
[2019-02-23] MEDS: SOD CHLORIDE 0.9% 1,000 ML IV (21:31)
[2019-02-23] MEDS: FLUVOXAMINE 50 MG TAB PO (23:45)
[2019-02-24] MEDS: ACCU-CHEK XX (02:00)
[2019-02-24] MEDS: SOD CHLORIDE 0.9% 1,000 ML IV ×3 (02:28→22:28)
[2019-02-24 07:02] LABS: ADD MAN DIFF? NO
[2019-02-24 07:20] LABS: WHITE BLOOD COUNT 7.7 10^3/ul (4.8-10.8)
[2019-02-24 07:20] LABS: BASOPHILS % 0.4 % (0.0-2.0); EOSINOPHILS # 0.2 10^3/ul (0.0-0.5); EOSINOPHILS % 3.1 % (0.0-7.0); HEMATOCRIT 38.6 % (42.0-52.0); HEMOGLOBIN 12.6 g/dl (14.0-18.0); LYMPHOCYTES # 2.6 10^3/ul (0.8-2.9); LYMPHOCYTES % 33.7 % (15.0-51.0); MEAN CORPUSCULAR HEMOGLOBIN 29.4 pg (29.0-33.0); MEAN CORPUSCULAR HGB CONC 32.6 g/dl (32.0-37.0); MEAN PLATELET VOLUME 11.4 fl (7.4-10.4); MONOCYTE # 0.7 10^3/ul (0.3-0.9); MONOCYTES % 8.9 % (0.0-11.0); NEUTROPHIL # 4.1 10^3/ul (1.6-7.5); NEUTROPHILS % 53.5 % (39.0-77.0); PLATELET COUNT 202 10^3/UL (140-415); RED BLOOD COUNT 4.29 10^6/ul (4.70-6.10); RED CELL DISTRIBUTION WIDTH 13.1 % (11.5-14.5)
[2019-02-24 07:32] LABS: HEMOGLOBIN A1C 7.4 % (0-5.9)
[2019-02-24 07:53] LABS: ANION GAP 12 (5-13); BLOOD UREA NITROGEN 24 mg/dl (7-20); CALCIUM 9.5 mg/dl (8.4-10.2); CARBON DIOXIDE 25 mmol/L (21-31); CHLORIDE 109 mmol/L (97-110); CREATININE 1.11 mg/dl (0.61-1.24); Estimated GFR > 60 mL/min (>60); GLUCOSE 149 mg/dl (70-220); PHOSPHORUS 3.8 mg/dl (2.5-4.9); POTASSIUM 4.3 mmol/L (3.5-5.1); SODIUM 146 mmol/L (135-144)
[2019-02-24] MEDS: INSULIN GLARGINE [LANTus] (100 UNITS/ML) SYG SC (08:05)
[2019-02-24] MEDS: INSULIN ASPART [NOVOLOG] 3 ML PEN SC ×7 (08:05→20:33)
[2019-02-24] MEDS: MECLIZINE 25 MG TAB PO ×2 (08:52→12:06)
[2019-02-24] MEDS: ASPIRIN 81 MG TAB PO (08:52)
[2019-02-24] MEDS: FLUVOXAMINE 50 MG TAB PO ×3 (08:52→20:31)
[2019-02-24] MEDS: DOCUSATE SODIUM 100 MG CAP PO (08:52)
[2019-02-24] MEDS: ATORVASTATIN 20 MG TAB PO (20:31)
[2019-02-24] MEDS: TAMSULOSIN (SR) 0.4 MG CAP PO (20:31)
[2019-02-24] MEDS: MIRTAZAPINE 15 MG TAB PO (20:32)
[2019-02-25] MEDS: ACCU-CHEK XX (02:00)
[2019-02-25] MEDS: MECLIZINE 25 MG TAB PO ×2 (02:37→17:32)
[2019-02-25] MEDS: ONDANSETRON 4 MG INJ IV (02:40)
[2019-02-25 05:27] LABS: ADD MAN DIFF? NO
[2019-02-25 05:32] LABS: WHITE BLOOD COUNT 8.3 10^3/ul (4.8-10.8)
[2019-02-25 05:32] LABS: BASOPHILS % 0.2 % (0.0-2.0); EOSINOPHILS # 0.2 10^3/ul (0.0-0.5); EOSINOPHILS % 2.9 % (0.0-7.0); HEMATOCRIT 36.9 % (42.0-52.0); HEMOGLOBIN 12.1 g/dl (14.0-18.0); LYMPHOCYTES # 2.7 10^3/ul (0.8-2.9); LYMPHOCYTES % 32.5 % (15.0-51.0); MEAN CORPUSCULAR HEMOGLOBIN 29.1 pg (29.0-33.0); MEAN CORPUSCULAR HGB CONC 32.8 g/dl (32.0-37.0); MEAN CORPUSCULAR VOLUME 88.7 fl (82.0-101.0); MEAN PLATELET VOLUME 10.7 fl (7.4-10.4); MONOCYTE # 0.7 10^3/ul (0.3-0.9); MONOCYTES % 8.6 % (0.0-11.0); NEUTROPHIL # 4.6 10^3/ul (1.6-7.5); NEUTROPHILS % 55.4 % (39.0-77.0); PLATELET COUNT 191 10^3/UL (140-415); RED BLOOD COUNT 4.16 10^6/ul (4.70-6.10); RED CELL DISTRIBUTION WIDTH 12.7 % (11.5-14.5)
[2019-02-25 06:08] LABS: ANION GAP 7 (5-13); BLOOD UREA NITROGEN 20 mg/dl (7-20); CALCIUM 9.4 mg/dl (8.4-10.2); CARBON DIOXIDE 24 mmol/L (21-31); CHLORIDE 111 mmol/L (97-110); Estimated GFR > 60 mL/min (>60); GLUCOSE 134 mg/dl (70-220); POTASSIUM 4.1 mmol/L (3.5-5.1); SODIUM 142 mmol/L (135-144)
[2019-02-25] MEDS: SOD CHLORIDE 0.9% 1,000 ML IV ×2 (07:00→18:46)
[2019-02-25] MEDS: INSULIN ASPART [NOVOLOG] 3 ML PEN SC ×7 (08:41→21:00)
[2019-02-25] MEDS: INSULIN GLARGINE [LANTus] (100 UNITS/ML) SYG SC (08:46)
[2019-02-25] MEDS: ASPIRIN 81 MG TAB PO (08:47)
[2019-02-25] MEDS: FLUVOXAMINE 50 MG TAB PO ×3 (08:47→21:09)
[2019-02-25] MEDS: ATORVASTATIN 20 MG TAB PO (21:08)
[2019-02-25] MEDS: TAMSULOSIN (SR) 0.4 MG CAP PO (21:09)
[2019-02-25] MEDS: MIRTAZAPINE 15 MG TAB PO (21:10)
[2019-02-26] MEDS: ACCU-CHEK XX (01:49)
[2019-02-26] MEDS: SOD CHLORIDE 0.9% 1,000 ML IV ×2 (04:51→15:28)
[2019-02-26] MEDS: ASPIRIN 81 MG TAB PO (09:00)
[2019-02-26] MEDS: INSULIN ASPART [NOVOLOG] 3 ML PEN SC ×6 (09:01→18:00)
[2019-02-26] MEDS: DOCUSATE SODIUM 100 MG CAP PO (09:04)
[2019-02-26] MEDS: MECLIZINE 25 MG TAB PO (09:09)
[2019-02-26] MEDS: FLUVOXAMINE 50 MG TAB PO ×2 (10:43→13:15)
[2019-02-26] MEDS: INSULIN GLARGINE [LANTus] (100 UNITS/ML) SYG SC (10:43)
== END 2019-02-26 18:50 | DRG 149 ==
LOC: PP2 02-26 02:00 → E/R 11:00 → 6WM 13:41
DX: H81.10 Benign paroxysmal vertigo, unspecified ear (principal); F32.9 Major depressive disorder, single episode, unspecified; E11.9 Type 2 diabetes mellitus without complications; I10 Essential (primary) hypertension; E78.5 Hyperlipidemia, unspecified
CPT/HCPCS: 36415; 70450; 80048; 82962; 83036; 83735; 84100; 84484; 85025; 85610; 85730; 93005; 97161; 97164; 99285-25; G0378

== ENCOUNTER 2019-02-26 18:57 | Inpatient (IN) | payer MEDICARE, BC ==
[2019-02-26] MEDS ORDERED: DEXTROSE 50% 50 ML SYRINGE IV ×2 (20:30)
[2019-02-26] MEDS ORDERED: GLUCAGON 1 MG INJ IM (20:30)
[2019-02-26] MEDS ORDERED: GLUCOSE GEL 15 GRAM TUBE BUCCAL (20:30)
[2019-02-26] MEDS ORDERED: DOCUSATE SODIUM 100 MG CAP PO (20:30)
[2019-02-26] MEDS ORDERED: GLUCOSE GEL 15 GRAM TUBE PO ×2 (20:30)
[2019-02-26] MEDS ORDERED: LACTULOSE 30ML CUP PO (21:00)
[2019-02-26] MEDS: INSULIN ASPART [NOVOLOG] 3 ML PEN SC (21:00)
[2019-02-26 21:14] LABS: ADD UMIC NO; UR ASCORBIC ACID NEGATIVE (NEGATIVE); UR BILIRUBIN (Dip) NEGATIVE (NEGATIVE); UR BLOOD (Dip) NEGATIVE (NEGATIVE); UR CLARITY CLEAR (CLEAR); UR COLOR YELLOW (YELLOW); UR GLUCOSE (Dip) NEGATIVE (NEGATIVE); UR KETONES (Dip) NEGATIVE (NEGATIVE); UR LEUKOCYTE ESTERASE (Dip) NEGATIVE Leu/ul (NEGATIVE); UR NITRITE (Dip) NEGATIVE (NEGATIVE); UR SPECIFIC GRAVITY (Dip) 1.016 (1.003-1.030); UR TOTAL PROTEIN (Dip) NEGATIVE (NEGATIVE); UR UROBILINOGEN (Dip) NEGATIVE (NEGATIVE)
[2019-02-26] MEDS: DOCUSATE SODIUM 100 MG CAP PO (21:32)
[2019-02-26] MEDS: TAMSULOSIN (SR) 0.4 MG CAP PO (21:33)
[2019-02-26] MEDS: SENNA TAB PO (21:33)
[2019-02-26] MEDS: MIRTAZAPINE 15 MG TAB PO (21:33)
[2019-02-26] MEDS: ATORVASTATIN 20 MG TAB PO (21:33)
[2019-02-26] MEDS: FLUVOXAMINE 50 MG TAB PO (21:34)
[2019-02-27] MEDS: ACCU-CHEK XX (02:00)
[2019-02-27] MEDS: INSULIN ASPART [NOVOLOG] 3 ML PEN SC ×7 (07:35→20:31)
[2019-02-27] MEDS: INSULIN GLARGINE [LANTus] (100 UNITS/ML) SYG SC (07:41)
[2019-02-27 07:56] LABS: ADD MAN DIFF? NO
[2019-02-27 07:59] LABS: BASOPHILS % 0.4 % (0.0-2.0); EOSINOPHILS # 0.2 10^3/ul (0.0-0.5); EOSINOPHILS % 2.8 % (0.0-7.0); HEMATOCRIT 36.5 % (42.0-52.0); HEMOGLOBIN 12.2 g/dl (14.0-18.0); LYMPHOCYTES # 2.5 10^3/ul (0.8-2.9); LYMPHOCYTES % 28.7 % (15.0-51.0); MEAN CORPUSCULAR HEMOGLOBIN 29.2 pg (29.0-33.0); MEAN CORPUSCULAR HGB CONC 33.4 g/dl (32.0-37.0); MEAN CORPUSCULAR VOLUME 87.3 fl (82.0-101.0); MEAN PLATELET VOLUME 11.1 fl (7.4-10.4); MONOCYTE # 0.7 10^3/ul (0.3-0.9); MONOCYTES % 8.3 % (0.0-11.0); NEUTROPHIL # 5.1 10^3/ul (1.6-7.5); NEUTROPHILS % 59.4 % (39.0-77.0); PLATELET COUNT 175 10^3/UL (140-415); RED BLOOD COUNT 4.18 10^6/ul (4.70-6.10); RED CELL DISTRIBUTION WIDTH 12.8 % (11.5-14.5)
[2019-02-27 07:59] LABS: WHITE BLOOD COUNT 8.5 10^3/ul (4.8-10.8)
[2019-02-27] MEDS: FLUVOXAMINE 50 MG TAB PO ×3 (08:06→20:24)
[2019-02-27] MEDS: DOCUSATE SODIUM 100 MG CAP PO ×2 (08:06→20:31)
[2019-02-27] MEDS: MAGNESIUM HYDROXIDE 30ML CUP PO (08:08)
[2019-02-27] MEDS: ASPIRIN 81 MG TAB PO (08:11)
[2019-02-27] MEDS: MECLIZINE 25 MG TAB PO (08:11)
[2019-02-27 08:13] LABS: ALANINE AMINOTRANSFERASE 28 IU/L (13-69); ALBUMIN 3.4 g/dl (3.3-4.9); ALBUMIN/GLOBULIN RATIO 1.21; ALKALINE PHOSPHATASE 89 IU/L (42-121); ANION GAP 10 (5-13); ASPARTATE AMINO TRANSFERASE 18 IU/L (15-46); BILIRUBIN,INDIRECT 0.4 mg/dl (0-1.1); BILIRUBIN,TOTAL 0.4 mg/dl (0.2-1.3); BLOOD UREA NITROGEN 14 mg/dl (7-20); CALCIUM 9.2 mg/dl (8.4-10.2); CARBON DIOXIDE 24 mmol/L (21-31); CHLORIDE 109 mmol/L (97-110); CREATININE 0.98 mg/dl (0.61-1.24); Estimated GFR > 60 mL/min (>60); GLUCOSE 98 mg/dl (70-220); SODIUM 143 mmol/L (135-144); TOTAL PROTEIN 6.2 g/dl (6.1-8.1)
[2019-02-27] MEDS: CARBAMIDE PEROXIDE 6.5% 15ML OTIC BOTH EARS ×2 (14:00→20:24)
[2019-02-27] MEDS: BISACODYL 10 MG SUPP PR (17:50)
[2019-02-27] MEDS: TAMSULOSIN (SR) 0.4 MG CAP PO (20:24)
[2019-02-27] MEDS: ATORVASTATIN 20 MG TAB PO (20:24)
[2019-02-27] MEDS: MIRTAZAPINE 15 MG TAB PO (20:25)
[2019-02-27] MEDS: SENNA TAB PO (20:31)
[2019-02-28] MEDS: ACCU-CHEK XX (02:00)
[2019-02-28] MEDS: INSULIN ASPART [NOVOLOG] 3 ML PEN SC ×7 (07:35→20:17)
[2019-02-28] MEDS: glipiZIDE 10 MG TAB PO ×2 (08:11→17:23)
[2019-02-28] MEDS: INSULIN GLARGINE [LANTus] (100 UNITS/ML) SYG SC (08:15)
[2019-02-28] MEDS: ASPIRIN 81 MG TAB PO (09:53)
[2019-02-28] MEDS: CARBAMIDE PEROXIDE 6.5% 15ML OTIC BOTH EARS ×2 (09:53→20:10)
[2019-02-28] MEDS: DOCUSATE SODIUM 100 MG CAP PO ×2 (09:53→20:16)
[2019-02-28] MEDS: FLUVOXAMINE 50 MG TAB PO ×3 (09:54→20:11)
[2019-02-28 14:53] LABS: IRON 38 ug/dl (35-150)
[2019-02-28 15:03] LABS: % IRON SATURATION 16 % SAT (22-52); TOTAL IRON BINDING CAPACITY 236 ug/dl (241-421)
[2019-02-28] MEDS: MIRTAZAPINE 15 MG TAB PO (20:11)
[2019-02-28] MEDS: MECLIZINE 25 MG TAB PO (20:11)
[2019-02-28] MEDS: TAMSULOSIN (SR) 0.4 MG CAP PO (20:11)
[2019-02-28] MEDS: ATORVASTATIN 20 MG TAB PO (20:11)
[2019-02-28] MEDS: SENNA TAB PO (20:16)
[2019-03-01] MEDS: ACCU-CHEK XX (02:00)
[2019-03-01] MEDS: INSULIN ASPART [NOVOLOG] 3 ML PEN SC ×7 (07:35→20:31)
[2019-03-01] MEDS: glipiZIDE 10 MG TAB PO ×2 (07:57→17:29)
[2019-03-01] MEDS: DOCUSATE SODIUM 100 MG CAP PO ×2 (08:35→20:31)
[2019-03-01] MEDS: FLUVOXAMINE 50 MG TAB PO ×3 (08:35→20:25)
[2019-03-01] MEDS: ASPIRIN 81 MG TAB PO (08:35)
[2019-03-01] MEDS: CARBAMIDE PEROXIDE 6.5% 15ML OTIC BOTH EARS ×2 (08:36→20:25)
[2019-03-01] MEDS: INSULIN GLARGINE [LANTus] (100 UNITS/ML) SYG SC (08:41)
[2019-03-01] MEDS: FERROUS FUMARATE (SR) TAB PO (12:06)
[2019-03-01] MEDS: MIRTAZAPINE 15 MG TAB PO (20:25)
[2019-03-01] MEDS: TAMSULOSIN (SR) 0.4 MG CAP PO (20:25)
[2019-03-01] MEDS: ATORVASTATIN 20 MG TAB PO (20:25)
[2019-03-01] MEDS: SENNA TAB PO (20:31)
[2019-03-02] MEDS: ACCU-CHEK XX (02:00)
[2019-03-02] MEDS: INSULIN ASPART [NOVOLOG] 3 ML PEN SC ×7 (07:35→21:00)
[2019-03-02] MEDS: glipiZIDE 10 MG TAB PO ×2 (08:08→17:24)
[2019-03-02] MEDS: INSULIN GLARGINE [LANTus] (100 UNITS/ML) SYG SC (08:09)
[2019-03-02] MEDS: CARBAMIDE PEROXIDE 6.5% 15ML OTIC BOTH EARS ×2 (10:34→21:06)
[2019-03-02] MEDS: FERROUS FUMARATE (SR) TAB PO (10:34)
[2019-03-02] MEDS: ASPIRIN 81 MG TAB PO (10:34)
[2019-03-02] MEDS: DOCUSATE SODIUM 100 MG CAP PO ×2 (10:34→21:00)
[2019-03-02] MEDS: FLUVOXAMINE 50 MG TAB PO ×3 (10:35→21:06)
[2019-03-02] MEDS: NEOMYC/POLYMYX/BACIT 30 GM OINT TOP ×2 (15:00→21:09)
[2019-03-02] MEDS: SENNA TAB PO (21:00)
[2019-03-02] MEDS: ATORVASTATIN 20 MG TAB PO (21:06)
[2019-03-02] MEDS: TAMSULOSIN (SR) 0.4 MG CAP PO (21:06)
[2019-03-02] MEDS: MIRTAZAPINE 15 MG TAB PO (21:06)
[2019-03-03] MEDS: ACCU-CHEK XX (02:00)
[2019-03-03] MEDS: INSULIN ASPART [NOVOLOG] 3 ML PEN SC ×7 (07:35→20:44)
[2019-03-03] MEDS: glipiZIDE 10 MG TAB PO ×2 (08:01→17:22)
[2019-03-03] MEDS: INSULIN GLARGINE [LANTus] (100 UNITS/ML) SYG SC (08:03)
[2019-03-03] MEDS: FERROUS FUMARATE (SR) TAB PO (08:36)
[2019-03-03] MEDS: DOCUSATE SODIUM 100 MG CAP PO ×2 (08:36→20:44)
[2019-03-03] MEDS: ASPIRIN 81 MG TAB PO (08:36)
[2019-03-03] MEDS: NEOMYC/POLYMYX/BACIT 30 GM OINT TOP ×2 (08:39→20:45)
[2019-03-03] MEDS: FLUVOXAMINE 50 MG TAB PO ×4 (09:00→20:46)
[2019-03-03 10:50] LABS: ADD MAN DIFF? NO
[2019-03-03 10:53] LABS: BASOPHILS % 0.3 % (0.0-2.0); EOSINOPHILS # 0.3 10^3/ul (0.0-0.5); EOSINOPHILS % 3.3 % (0.0-7.0); HEMATOCRIT 40.7 % (42.0-52.0); HEMOGLOBIN 13.5 g/dl (14.0-18.0); LYMPHOCYTES # 2.2 10^3/ul (0.8-2.9); LYMPHOCYTES % 24.8 % (15.0-51.0); MEAN CORPUSCULAR HEMOGLOBIN 29.3 pg (29.0-33.0); MEAN CORPUSCULAR HGB CONC 33.2 g/dl (32.0-37.0); MEAN CORPUSCULAR VOLUME 88.5 fl (82.0-101.0); MEAN PLATELET VOLUME 10.8 fl (7.4-10.4); MONOCYTE # 0.7 10^3/ul (0.3-0.9); MONOCYTES % 7.8 % (0.0-11.0); NEUTROPHIL # 5.7 10^3/ul (1.6-7.5); NEUTROPHILS % 63.2 % (39.0-77.0); PLATELET COUNT 221 10^3/UL (140-415); RED CELL DISTRIBUTION WIDTH 13.2 % (11.5-14.5)
[2019-03-03] MEDS: CEPHALEXIN 250 MG CAP PO ×2 (14:25→22:05)
[2019-03-03] MEDS: SENNA TAB PO (20:44)
[2019-03-03] MEDS: MIRTAZAPINE 15 MG TAB PO (20:46)
[2019-03-03] MEDS: ATORVASTATIN 20 MG TAB PO (20:47)
[2019-03-03] MEDS: TAMSULOSIN (SR) 0.4 MG CAP PO (20:47)
[2019-03-04] MEDS: ACCU-CHEK XX (02:00)
[2019-03-04] MEDS: CEPHALEXIN 250 MG CAP PO ×2 (06:55→13:54)
[2019-03-04] MEDS: INSULIN ASPART [NOVOLOG] 3 ML PEN SC ×4 (07:35→12:07)
[2019-03-04] MEDS: glipiZIDE 10 MG TAB PO (08:11)
[2019-03-04] MEDS: INSULIN GLARGINE [LANTus] (100 UNITS/ML) SYG SC (08:17)
[2019-03-04] MEDS: FLUVOXAMINE 50 MG TAB PO ×2 (08:46→13:54)
[2019-03-04] MEDS: FERROUS FUMARATE (SR) TAB PO (08:46)
[2019-03-04] MEDS: DOCUSATE SODIUM 100 MG CAP PO (08:46)
[2019-03-04] MEDS: ASPIRIN 81 MG TAB PO (08:47)
[2019-03-04] MEDS: NEOMYC/POLYMYX/BACIT 30 GM OINT TOP (08:47)
[2019-03-04] MEDS: ACETAMINOPHEN 325 MG TAB PO (08:49)
== END 2019-03-04 15:00 | disposition home health service (06) | DRG 149 ==
LOC: VRC 18:57
PROC: F07Z5ZZ Bed Mobility Treatment (ICD-10-PCS; principal; 2019-02-26)
PROC: F08Z2ZZ Grooming/Personal Hygiene Treatment (ICD-10-PCS; 2019-02-26)
DX: H81.49 Vertigo of central origin, unspecified ear (principal); F33.2 Major depressive disorder, recurrent severe without psychotic features; L03.119 Cellulitis of unspecified part of limb; I10 Essential (primary) hypertension; E11.9 Type 2 diabetes mellitus without complications; F99 Mental disorder, not otherwise specified; E78.5 Hyperlipidemia, unspecified; Z79.4 Long term (current) use of insulin; H93.19 Tinnitus, unspecified ear; D50.9 Iron deficiency anemia, unspecified; E66.9 Obesity, unspecified; Z68.33 Body mass index [BMI] 33.0-33.9, adult
CPT/HCPCS: 80053; 81003; 82607; 82962; 83540; 85025; 87081; 87086; 97110; 97112; 97116; 97163; 97530; 97535